=== PATIENT | male | born 1955 | race Caucasian/White ===

== ENCOUNTER 2017-08-29 00:03 | Emergency (ER) | payer MEDICARE, MEDICAID ==
[~2017-08-29] VITALS: Ht 172.7 cm; Wt 56.7 kg
[~2017-08-29 00:03] MED LIST: ALB0.5UD IH; ALBU8.5H8 INH; ALEN70TA48 PO; CLOB10TA PO; ESCI10TA54 PO; FLO0.4C PO; GLUC750T8 PO; GUAI600T45 PO; IBUP-1985 PO; LEVE500T PO; LISI-644 PO; MULT-1179 PO; OMEP-84 PO; OSC500T PO; RISP1TAB47 PO; TIOT4MIS3 PO
[2017-08-29] MEDS ORDERED: morphine 4 MG/ML inj SYRINge IV PRN (01:20)
[2017-08-29] MEDS ORDERED: ondansetron/PF 4mg/2ml inj IV ONE (01:20)
[2017-08-29] MEDS ORDERED: normal saline 1000ML IV soln IVB ONE (01:20)
[2017-08-29 02:27] LABS: ALANINE AMINOTRANSFERASE 14 U/L (12-78); ALBUMIN 3.5 G/DL (3.4-5.0); ALKALINE PHOSPHATASE 47 IU/L (46-116); ANION GAP 6 (8-16); ASPARTATE AMINO TRANSFERASE 10 U/L (10-37); BILIRUBIN,TOTAL 0.3 MG/DL (0.1-1.0); BLOOD UREA NITROGEN 35 MG/DL (7-18); BUN/CREATININE RATIO 28.5 (5.4-32.0); CALCIUM 8.8 MG/DL (8.5-10.1); CHLORIDE 109 MMOL/L (99-107); CREATININE 1.23 MG/DL (0.60-1.10); GLUCOSE 121 MG/DL (70-104); POTASSIUM 3.9 MMOL/L (3.5-5.1); SODIUM 143 MMOL/L (135-145); TOTAL CARBON DIOXIDE 27.7 MMOL/L (24-32); TOTAL PROTEIN 7.1 G/DL (6.4-8.2); eGFR 60 ML/MIN
[2017-08-29 02:28] LABS: BASOPHILS % (AUTO) 0.2 % (0-1); EOSINOPHILS # (AUTO) 0.4 X10'3 (0-0.9); EOSINOPHILS % (AUTO) 2.6 % (0-6); HEMATOCRIT 36.8 % (42.0-52.0); HEMOGLOBIN 12.7 g/dl (14.0-17.9); LYMPHOCYTES # (AUTO) 1.1 X10'3 (1.1-4.8); LYMPHOCYTES % (AUTO) 7.2 % (21-51); MEAN CORPUSCULAR HGB CONC 34.4 % (33.0-36.5); MEAN CORPUSCULAR VOLUME 87.1 FL (78-98); MEAN PLATELET VOLUME 8.2 FL (7.4-10.4); MONOCYTES # (AUTO) 1.5 X10'3 (0-0.9); MONOCYTES % (AUTO) 9.5 % (2-12); NEUTROPHILS # (AUTO) 12.8 X10'3 (1.8-7.7); NEUTROPHILS % (AUTO) 80.5 % (42-75); PLATELET COUNT 286 X10'3 (140-440); RED BLOOD COUNT 4.22 X10'6 (4.70-6.10); RED CELL DISTRIBUTION WIDTH 14.4 % (11.5-14.5)
[2017-08-29 02:29] LABS: LIPASE 77 U/L (73-393); TROPONIN I < 0.04 NG/ML (0.0-0.05)
[2017-08-29 03:19] LABS: CLARITY,URINE CLEAR (Clear); COLOR,URINE YELLOW (Yellow); GLUCOSE, URINE NEGATIVE (Neg); KETONES,URINE 15 mg/dl (Neg); LEUKOCYTE ESTERASE ,URINE NEGATIVE (Neg); NITRITES, URINE NEGATIVE (Neg); OCCULT BLOOD,URINE NEGATIVE (Neg); PH,URINE 5.5 (4.8-8.0); PROTEIN,URINE NEGATIVE (Neg); UROBILINOGEN,URINE 0.2 E.U/dL (0.2-1.0)
[2017-08-29 03:25] LABS: UA COLLECTION TYPE FOLEY CATH
[2017-08-29 03:38] VITALS: BP 140/70
== END 2017-08-29 04:03 | disposition home or self-care (01) ==
LOC: ER 00:03
DX: N23 Unspecified renal colic (principal); Z79.899 Other long term (current) drug therapy; Z88.1 Allergy status to other antibiotic agents
CPT/HCPCS: 36415; 74176; 80053; 81003; 83690; 84484; 85025; 96361; 96374; 96375; 99285; A4310; J2270; J2405; J7030

== ENCOUNTER 2017-08-30 22:55 | Emergency (ER) | payer MEDICARE, MEDICAID ==
[~2017-08-30] VITALS: Ht 172.7 cm; Wt 54.0 kg
[~2017-08-30 22:55] MED LIST changes: -ALEN70TA48 PO
[2017-08-31] MEDS ORDERED: ciprofloxacin 250mg tablet PO ONE (01:05)
[2017-08-31] MEDS ORDERED: metroNIDAZOLE 500mg tablet PO ONE (01:05)
[2017-08-31] MEDS ORDERED: normal saline 1000ml 1,000 ML IV ONE (01:05)
[2017-08-31] MEDS ORDERED: loperamide 2mg capsule PO ONE (01:05)
[2017-08-31] MEDS ORDERED: LOPE-155 PO (02:19)
[2017-08-31 02:35] VITALS: BP 138/59
== END 2017-08-31 02:38 | disposition home or self-care (01) ==
LOC: ER 22:55
DX: R19.7 Diarrhea, unspecified (principal); R50.9 Fever, unspecified; R10.31 Right lower quadrant pain; Z87.891 Personal history of nicotine dependence; Z79.899 Other long term (current) drug therapy; Z88.8 Allergy status to other drugs, medicaments and biological substances
CPT/HCPCS: 96360; 99284; J3490; J7030; 88300

== ENCOUNTER 2017-09-03 09:57 | Emergency (ER) | payer MEDICARE, MEDICAID ==
[~2017-09-03] VITALS: Ht 172.7 cm; Wt 71.4 kg
[~2017-09-03 09:57] MED LIST changes: +LOPE-155 PO
[2017-09-03 11:10] LABS: CLARITY,URINE CLOUDY (Clear); COLOR,URINE AMBER (Yellow); GLUCOSE, URINE NEGATIVE (Neg); KETONES,URINE NEGATIVE (Neg); LEUKOCYTE ESTERASE ,URINE SMALL (Neg); NITRITES, URINE POSITIVE (Neg); OCCULT BLOOD,URINE LARGE (Neg); PH,URINE 5.5 (4.8-8.0); PROTEIN,URINE >=300 mg/dl (Neg); UROBILINOGEN,URINE 0.2 E.U/dL (0.2-1.0)
[2017-09-03 11:18] LABS: UA COLLECTION TYPE FOLEY CATH
[2017-09-03 11:19] LABS: RBC,URINE TNTC /HPF (0-2); WBC,URINE 50-100 /HPF (0-4)
[2017-09-03 11:20] LABS: BACTERIA,URINE 4+ /HPF (Neg); MUCUS STRANDS MODERATE /LPF (Neg); RENAL CELLS, URINE FEW /HPF; SQUAMOUS EPITHELIAL CELL,UR FEW /LPF (FEW)
[2017-09-03] MEDS ORDERED: cephalexin 500mg capsule PO ONE (11:40)
[2017-09-03] MEDS ORDERED: CEPH500C5 PO (12:01)
[2017-09-03 13:04] VITALS: BP 136/76
== END 2017-09-03 13:11 | disposition home or self-care (01) ==
LOC: ER 09:57
DX: N39.0 Urinary tract infection, site not specified (principal); J44.9 Chronic obstructive pulmonary disease, unspecified; Z98.890 Other specified postprocedural states; Z88.1 Allergy status to other antibiotic agents; Z79.2 Long term (current) use of antibiotics; Z79.899 Other long term (current) drug therapy
CPT/HCPCS: 51702; 81001; 87077; 87088; 87186; 99284; A4310; A4344

== ENCOUNTER 2017-09-08 10:38 | Emergency (ER) | payer MEDICARE, MEDICAID ==
[~2017-09-08] VITALS: Ht 172.7 cm; Wt 59.0 kg
[~2017-09-08 10:38] MED LIST changes: +CEPH500C5 PO
[2017-09-08 11:13] LABS: BASOPHILS % (AUTO) 0.3 % (0-1); EOSINOPHILS # (AUTO) 1.2 X10'3 (0-0.9); EOSINOPHILS % (AUTO) 12.3 % (0-6); HEMATOCRIT 31.1 % (42.0-52.0); HEMOGLOBIN 10.4 g/dl (14.0-17.9); LYMPHOCYTES # (AUTO) 1.5 X10'3 (1.1-4.8); LYMPHOCYTES % (AUTO) 15.2 % (21-51); MEAN CORPUSCULAR HGB CONC 33.4 % (33.0-36.5); MEAN CORPUSCULAR VOLUME 86.7 FL (78-98); MEAN PLATELET VOLUME 7.1 FL (7.4-10.4); MONOCYTES # (AUTO) 0.9 X10'3 (0-0.9); MONOCYTES % (AUTO) 9.6 % (2-12); NEUTROPHILS % (AUTO) 62.6 % (42-75); PLATELET COUNT 377 X10'3 (140-440); RED BLOOD COUNT 3.59 X10'6 (4.70-6.10); RED CELL DISTRIBUTION WIDTH 14.4 % (11.5-14.5); WHITE BLOOD COUNT 9.6 X10'3 (4.5-11.0)
[2017-09-08] MEDS ORDERED: normal saline 1000ML IV soln IVB ONE ×2 (11:20→12:40)
[2017-09-08 11:23] LABS: PARTIAL THROMBOPLASTIN TIME 29 SECONDS (22-32); PROTHROMBIN TIME 10.7 SECONDS (9.0-12.0)
[2017-09-08 11:28] LABS: ALANINE AMINOTRANSFERASE 18 U/L (12-78); ALBUMIN 2.7 G/DL (3.4-5.0); ALBUMIN/GLOBULIN RATIO 0.6 (1.1-1.5); ALKALINE PHOSPHATASE 35 IU/L (46-116); ANION GAP 10 (8-16); ASPARTATE AMINO TRANSFERASE 13 U/L (10-37); BILIRUBIN,TOTAL 0.2 MG/DL (0.1-1.0); BLOOD UREA NITROGEN 21 MG/DL (7-18); CALCIUM 9.1 MG/DL (8.5-10.1); CHLORIDE 106 MMOL/L (99-107); CREATININE 1.05 MG/DL (0.60-1.10); GLUCOSE 95 MG/DL (70-104); POTASSIUM 4.6 MMOL/L (3.5-5.1); SODIUM 145 MMOL/L (135-145); TOTAL CARBON DIOXIDE 29.2 MMOL/L (24-32); TOTAL PROTEIN 6.9 G/DL (6.4-8.2); eGFR 72 ML/MIN
[2017-09-08 14:47] VITALS: BP 129/63
== END 2017-09-08 14:51 | disposition home or self-care (01) ==
LOC: ER 10:39
DX: R31.9 Hematuria, unspecified (principal); R33.9 Retention of urine, unspecified; J44.9 Chronic obstructive pulmonary disease, unspecified; Z98.890 Other specified postprocedural states; Z88.1 Allergy status to other antibiotic agents; Z79.2 Long term (current) use of antibiotics; Z79.899 Other long term (current) drug therapy
CPT/HCPCS: 36415; 76775; 80053; 84484; 85025; 85610; 85730; 93005; 96360; 99285; J7030

== ENCOUNTER 2017-11-30 20:10 | Emergency (ER) | payer MEDICARE, MEDICAID ==
[~2017-11-30] VITALS: Ht 172.7 cm; Wt 75.0 kg
[2017-11-30] MEDS ORDERED: acetaminophen 325mg tablet PO ONE (23:00)
[2017-12-01 00:06] VITALS: BP 132/84
== END 2017-12-01 00:53 | disposition home or self-care (01) ==
LOC: ER 20:10
DX: S60.222A Contusion of left hand, initial encounter (principal); J44.9 Chronic obstructive pulmonary disease, unspecified; Z88.1 Allergy status to other antibiotic agents; Z79.899 Other long term (current) drug therapy; Z98.890 Other specified postprocedural states; W22.8XXA Striking against or struck by other objects, initial encounter; Y93.89 Activity, other specified; Y92.89 Other specified places as the place of occurrence of the external cause; Y99.8 Other external cause status
CPT/HCPCS: 73130; 99284

== ENCOUNTER 2018-03-13 08:12 | Emergency (ER) | payer MEDICARE, MEDICAID ==
[~2018-03-13] VITALS: Ht 172.7 cm; Wt 49.0 kg
[2018-03-13 09:29] VITALS: BP 153/66
[2018-03-13] MEDS ORDERED: LIDOcaine 1.5% w/epinephrine 1:200,000 5ml ampul IJ ONE (10:45)
[2018-03-13] MEDS ORDERED: LIDOcaine 1% w/epiNEPHrine 1:200,000 30ml vial IJ ONE (10:50)
== END 2018-03-13 12:04 | disposition home or self-care (01) ==
LOC: ER 08:13
DX: S01.01XA Laceration without foreign body of scalp, initial encounter (principal); M54.2 Cervicalgia; R53.1 Weakness; J44.9 Chronic obstructive pulmonary disease, unspecified; Z98.890 Other specified postprocedural states; Z87.820 Personal history of traumatic brain injury; Z88.1 Allergy status to other antibiotic agents; Z79.899 Other long term (current) drug therapy; W18.49XA Other slipping, tripping and stumbling without falling, initial encounter; Y93.89 Activity, other specified; Y92.89 Other specified places as the place of occurrence of the external cause; Y99.9 Unspecified external cause status
CPT/HCPCS: 12001; 70450; 72125; 99284; J3490

== ENCOUNTER 2020-01-27 10:26 | Emergency (ER) | payer MEDICARE, MEDICAID ==
[~2020-01-27] VITALS: Ht 170.2 cm; Wt 71.4 kg
[~2020-01-27 10:26] MED LIST changes: -CEPH500C5 PO; -ESCI10TA54 PO; +ESCI10TA61 PO; -LOPE-155 PO; +LOPE-190 PO
--- NOTE | 2020-01-27 12:05 | NUR ---
PT BACK FROM CT.
[2020-01-27 12:24] LABS: BASOPHILS % (AUTO) 0.6 % (0-1); EOSINOPHILS # (AUTO) 0.4 X10'3 (0-0.9); EOSINOPHILS % (AUTO) 4.5 % (0-6); HEMATOCRIT 36.5 % (42.0-52.0); HEMOGLOBIN 12.3 g/dl (14.0-17.9); LYMPHOCYTES # (AUTO) 1.2 X10'3 (1.1-4.8); LYMPHOCYTES % (AUTO) 15.6 % (21-51); MEAN CORPUSCULAR HEMOGLOBIN 29.3 PG (27.0-31.0); MEAN CORPUSCULAR HGB CONC 33.6 g/dL (33.0-36.5); MEAN CORPUSCULAR VOLUME 87.1 FL (78-98); MEAN PLATELET VOLUME 7.9 FL (7.4-10.4); MONOCYTES # (AUTO) 0.7 X10'3 (0-0.9); MONOCYTES % (AUTO) 8.7 % (2-12); NEUTROPHILS # (AUTO) 5.6 X10'3 (1.8-7.7); NEUTROPHILS % (AUTO) 70.6 % (42-75); PLATELET COUNT 250 X10'3 (140-440); RED BLOOD COUNT 4.19 X10'6 (4.70-6.10)
[2020-01-27 12:36] LABS: ALANINE AMINOTRANSFERASE 23 U/L (12-78); ALBUMIN 3.7 G/DL (3.4-5.0); ALKALINE PHOSPHATASE 39 IU/L (46-116); ANION GAP 6 (8-16); ASPARTATE AMINO TRANSFERASE 13 U/L (10-37); BILIRUBIN,TOTAL 0.4 MG/DL (0.1-1.0); BLOOD UREA NITROGEN 28 MG/DL (7-18); BUN/CREATININE RATIO 27.2 (5.4-32.0); CALCIUM 9.3 MG/DL (8.5-10.1); CHLORIDE 106 MMOL/L (99-107); CREATININE 1.03 MG/DL (0.60-1.10); GLUCOSE 92 MG/DL (70-104); POTASSIUM 4.2 MMOL/L (3.5-5.1); SODIUM 143 MMOL/L (135-145); TOTAL CARBON DIOXIDE 31.3 MMOL/L (24-32); TOTAL PROTEIN 7.5 G/DL (6.4-8.2); eGFR 73 ML/MIN
--- NOTE | 2020-01-27 13:29 | NUR ---
Pt awaiting transfer to [facility].
[2020-01-27 13:48] VITALS: BP 187/72
--- NOTE | 2020-01-27 14:07 | NUR ---
PT'S SISTER CALLS FOR UPDATE, WILL COME HERE TO [employer]OC[employer] ANALYST HIS WALKER SINCE HE IS BEING TRANSFERRED.
--- NOTE | 2020-01-27 14:16 | NUR ---
EMS ARRIVES TO TRANSPORT PT TO [facility].
--- NOTE | 2020-01-27 14:41 | NUR ---
REPORT CALLED TO [facility]. PT IS TAKEN BY EMS NOW FOR TRANSPORT.
== END 2020-01-27 14:46 | disposition short-term general hospital (02) ==
LOC: ER 10:27
DX: S02.113A Unspecified occipital condyle fracture, initial encounter for closed fracture (principal); S00.81XA Abrasion of other part of head, initial encounter; M54.2 Cervicalgia; R53.1 Weakness; R47.81 Slurred speech; J44.9 Chronic obstructive pulmonary disease, unspecified; Z98.890 Other specified postprocedural states; Z88.1 Allergy status to other antibiotic agents; Z79.899 Other long term (current) drug therapy; W19.XXXA Unspecified fall, initial encounter; Y93.89 Activity, other specified; Y92.89 Other specified places as the place of occurrence of the external cause; Y99.8 Other external cause status
CPT/HCPCS: 36415; 70450; 72125; 72128; 80053; 85025; 93005; 99285